=== PATIENT | female | born 1965 | race Caucasian/White ===

== ENCOUNTER 2017-02-06 07:34 | Day surgery (SDC) | payer OTHER ==
--- NOTE | 2017-02-01 10:00 | RADIOLOGY REPORT (SQ) ---
EXAM DESCRIPTION: CHEST PA/LATERAL COMPLETED DATE/TIME: 02/01/2017 9:42 am REASON FOR STUDY: PRE OP COMPARISON: None. EXAM PARAMETERS: NUMBER OF VIEWS: two views TECHNIQUE: Digital Frontal and Lateral radiographic views of the chest acquired. RADIATION DOSE: NA LIMITATIONS: none FINDINGS: LUNGS AND PLEURA: No opacities, masses or pneumothorax. No pleural effusion. MEDIASTINUM AND HILAR STRUCTURES: No masses or contour abnormalities. HEART AND VASCULAR STRUCTURES: Heart normal size. No evidence for failure. BONES: No acute findings. HARDWARE: None in the chest. OTHER: No other significant finding. IMPRESSION: NO SIGNIFICANT RADIOGRAPHIC FINDING IN THE CHEST. TECHNICAL DOCUMENTATION: JOB ID: [id number] [employer]- All Rights Reserved
[2017-02-01 10:44] LABS: APPEARANCE,URINE CLEAR; BILIRUBIN,URINE NEGATIVE (NEGATIVE); GLUCOSE, URINE NEGATIVE (NEGATIVE); KETONES,URINE NEGATIVE (NEGATIVE); LEUKOCYTE ESTERASE,URINE NEGATIVE (NEGATIVE); NITRITE,URINE NEGATIVE (NEGATIVE); PROTEIN,URINE NEGATIVE (NEGATIVE); UROBILINOGEN,URINE NEGATIVE mg/dL (<2.0)
[2017-02-01 10:49] LABS: ABSOLUTE BASOPHILS # (AUTO) 0.1 10^3/uL (0.0-0.2); ABSOLUTE EOSINOPHILS # (AUTO) 0.6 10^3/uL (0.0-0.6); ABSOLUTE LYMPHOCYTES (AUTO) 2.4 10^3/uL (0.5-4.7); ABSOLUTE MONOCYTES (AUTO) 0.5 10^3/uL (0.1-1.4); ABSOLUTE NEUT (AUTO) 7.6 10^3/uL (1.7-8.2); BASOPHILS % (AUTO) 0.5 % (0-2); HEMATOCRIT 41.4 % (36.0-47.0); HEMOGLOBIN 13.9 g/dL (12.0-15.5); HGB HCT DIFFERENCE 0.3; LYMPHOCYTES % (AUTO) 21.8 % (13-45); MEAN CORPUSCULAR HEMOGLOBIN 30.7 pg (27.0-33.4); MEAN CORPUSCULAR HGB CONC 33.5 g/dL (32.0-36.0); MEAN CORPUSCULAR VOLUME 92 fl (80-97); MONOCYTES % (AUTO) 4.8 % (3-13); RED BLOOD COUNT 4.51 10^6/uL (3.72-5.28); RED CELL DISTRIBUTION WIDTH 12.8 % (11.5-14.0); SEGMENTED NEUTROPHILS % (AUTO) 67.9 % (42-78); WHITE BLOOD COUNT 11.2 10^3/uL (4.0-10.5)
[2017-02-01 11:23] LABS: ANION GAP 13 (5-19); BLOOD UREA NITROGEN 14 mg/dL (7-20); CALCIUM 9.9 mg/dL (8.4-10.2); CARBON DIOXIDE 24 mmol/L (22-30); CHLORIDE 103 mmol/L (98-107); CREATININE RESULT 0.81 mg/dL (0.52-1.25); GLUCOSE 87 mg/dL (75-110); POTASSIUM 4.8 mmol/L (3.6-5.0); SODIUM 139.6 mmol/L (137-145)
--- NOTE | 2017-02-01 13:16 | EKG REPORT ---
SEVERITY:- NORMAL ECG - SINUS RHYTHM : Confirmed by: Curt Lozano MD 01-Feb-2017 13:15:23
[~2017-02-06 07:34] MED LIST: CEFAZOLIN 2 GM/D5W RTU 2 GM/50 ML RTUPB IV PRN; CLINDAMYCIN 600 MG/D5W RTU 600 MG/50 ML RTUPB IV PRN; LACTATED RINGERS 1000 ML IV PRN; LIDOCAINE 0.5% INJ-PF (5 MG/ML) 50 ML SDV SUBCUT PRN
[2017-02-06] MEDS ORDERED: FENTANYL CITRATE INJ/PF 100 MCG/2 ML AMPUL ONE (09:12)
[2017-02-06] MEDS ORDERED: FENTANYL CITRATE INJ/PF 250 MCG/5 ML AMPULE ONE (09:12)
[2017-02-06] MEDS ORDERED: EPHEDRINE SULFATE INJ 50 MG/1 ML AMPULE ONE (09:13)
[2017-02-06] MEDS ORDERED: ACETAMINOPHEN 0 ML IV ONE (09:13)
[2017-02-06] MEDS ORDERED: PROPOFOL INJ 200 MG/20 ML VIAL IV ONE (09:13)
[2017-02-06] MEDS ORDERED: MIDAZOLAM 2 MG/2 ML INJ ONE (09:13)
[2017-02-06] MEDS ORDERED: MORPHINE SULFATE 10 MG/ML INJ ONE (09:14)
[2017-02-06] MEDS ORDERED: DIPHENHYDRAMINE HCL 50 MG/ML VIAL IV PRN (10:26)
[2017-02-06] MEDS ORDERED: PROMETHAZINE HCL INJ 25 MG/1 ML VIAL IV PRN (10:26)
[2017-02-06] MEDS ORDERED: FENTANYL CITRATE INJ/PF 100 MCG/2 ML AMPUL IV PRN ×3 (10:26)
--- NOTE | 2017-02-06 10:31 | Operative Report ---
Operative Report DATE OF SURGERY: 02/06/17 PREOPERATIVE DIAGNOSIS: Degenerative tear right Achilles tendon OPERATION: Debridement and primary repair right Achilles tendon SURGEON: AMY CORREA ANESTHESIA: Spinal TISSUE REMOVED OR ALTERED: Specimen to pathology ESTIMATED BLOOD LOSS: Minimal PROCEDURE: With the patient prone on the operating table the right lower extremities prepped and draped in sterile fashion. Limb was elevated for exsanguination tourniquet inflated 280 torr. A longitudinal incision was made over the lateral surface of the Achilles tendon in its midsection at the level of a palpable swelling and tenderness. Sharp dissection was carried incision through the epitenon on. The epitenon was divided revealing the underlying tendon visualized. This was split in the direction of its fibers revealing the nodule degenerative tissue. This was debrided sharply with a 15 blade. The tendon was then repaired using locking locking sutures and a #2 FiberWire from proximal to distal. The tourniquet is deflated. The wound is irrigated. Hemostasis obtained with electrocautery. The wound is closed with interrupted Vicryl followed by Dermabond. A sterile compressive dressing and a Cam walker applied and the patient's return to the PACU in satisfactory condition.
[2017-02-06] MEDS ORDERED: ONDANSETRON 4 MG TAB.RAPDIS SL PRN (10:56)
[2017-02-06] MEDS ORDERED: TRAMADOL HCL 50 MG TABLET PO PRN (11:40)
[2017-02-06 15:02] VITALS: BP 135/75
[2017-02-06] MEDS ORDERED: GLYCOPYRROLATE INJ 0.4 MG/2 ML VIAL ONE (15:28)
[2017-02-06] MEDS ORDERED: DEXAMETHASONE SOD PHOSPHATE INJ 4 MG/1 ML VIAL ONE (15:28)
[2017-02-06] MEDS ORDERED: ONDANSETRON HCL INJ/PF 4 MG/2 ML SDV ONE (15:28)
== END 2017-02-06 14:40 | disposition home or self-care (01) ==
LOC: OROUT 07:34
PROVIDERS: ATTEND Orthopaedic Surgery
PROC: 0LQN0ZZ Repair Right Lower Leg Tendon, Open Approach (ICD-10-PCS; principal; 2017-02-06 09:45)
DX: M66.871 Spontaneous rupture of other tendons, right ankle and foot (principal); M76.61 Achilles tendinitis, right leg; F17.210 Nicotine dependence, cigarettes, uncomplicated; I99.9 Unspecified disorder of circulatory system; Z88.0 Allergy status to penicillin; Z88.6 Allergy status to analgesic agent; Z88.1 Allergy status to other antibiotic agents; Z79.51 Long term (current) use of inhaled steroids; Z86.718 Personal history of other venous thrombosis and embolism
CPT/HCPCS: 93005; 36415; 85025; 81025; 80048; 81001; 88302 ×2; 71020; 93010; 27650; J2250; J1100; J3010; J2405; J2704; 1472; J0131; J2270; J3490